=== PATIENT | female | born 1970 | race Caucasian/White ===

== ENCOUNTER 2025-03-21 04:49 | Emergency (ER) | payer BC, SELFPAY ==
[2025-03-21] VITALS (11 sets, daily range): BP systolic 107–140; BP diastolic 62–87; PULSE 91–109; RESP 14–19; TEMP 36.4; O2SAT 92–95
--- NOTE | ~2025-03-21 | XR_ITS ---
Clinical Indication: Cough PA and lateral views of the chest: Comparison: None Findings: The lungs are clear, without evidence of focal consolidation or pleural effusion. Probable COPD. Cardiomediastinal silhouette is within normal limits. Bones and soft tissues are unremarkable. Impression: Clear lungs. Probable COPD. Reviewed, dictated and finalized at location . Impression: Clear lungs. Probable COPD.
--- NOTE | 2025-03-21 05:26 | ED.NAVMDI ---
HPI - Nausea/Vomiting/Diarrhea General Chief complaint: Nausea/Vomiting/Diarrhea Stated complaint: flu - like sx Time Seen by Provider: 03/21/25 05:10 Source: patient Mode of arrival: ambulatory Limitations: no limitations History of Present Illness HPI Narrative: Patient presents with a variety of symptoms. She reports flu like symptoms since Thursday. She has been congested with a sore throat as well as nausea; vomited Thursday (coffee, which was reportedly a very unpleasant experience) but not since. She had diarrhea but now has been constipated, LBM yesterday. Occasional abdominal pain. Unknown if any fevers. Decreased PO intake. Has been coughing after which she developed chest pain. Also shortness of breath. Lives with her boyfriend who has also been sick with similar symptoms (I guess he just has a better immune system than me). Has not seen her PCP for this. History of T2DM and has noticed that her blood sugars have been elevated recently. Feels weak. Smokes <1PPD but denies underlying respiratory diagnoses of asthma or COPD. Reports feeling hungry. NATHALY was 1/2 cup of coffee. She has tried Mucinex and FastMax (?). Related Data Allergies Allergy/AdvReac Type Severity Reaction Status Date / Time azithromycin Allergy Severe Hives Verified 03/21/25 04:51 Penicillins Allergy Intermediate Hives Verified 03/21/25 04:51 PMFSH Past Medical History Medical History Type 2 diabetes mellitus Social History Social History Smoking status: Current every day smoker Additional smoking assessment comments: <1PPD Living arrangements: other Additional living arrangements comments: w/ boyfriend Exam Narrative: GENERAL: Well-appearing, well-nourished, and in no acute distress. HEAD: Normocephalic, atraumatic. EYES: Non injected, non icteric ENT: Nares clear, no rhinorrhea or epistaxis. Gross auditory acuity intact. NECK: Supple. No meningismus. CHEST: Speaking in full sentences. No respiratory distress. Coarse rhonchi/wheezes bilaterally. Occasionally needs to try to stifle cough during deep breaths. HEART: Tachycardic rate and rhythm. . ABDOMEN: Soft, nondistended. No rigidity or guarding. Not peritoneal EXTREMITIES: Normal range of motion. No lower extremity edema. SKIN: Warm, dry, no rash. NEURO: No focal deficits. Alert and oriented. Answering questions. Following commands. Normal speech without aphasia or dysarthria. PSYCH: Congruent mood and affect. Seems disgruntled when responding to questions. Course Vital Signs Vital signs: Vital Signs Temperature 97.5 F L 03/21/25 05:02 Pulse Rate 109 H 03/21/25 05:02 Blood Pressure 140/69 03/21/25 05:02 Pulse Oximetry 93 03/21/25 05:02 Temperature 97.5 F L 03/21/25 05:02 Pulse Rate 99 03/21/25 08:36 Respiratory Rate 16 03/21/25 08:36 Blood Pressure 113/62 03/21/25 08:36 Pulse Oximetry 95 03/21/25 08:36 Oxygen Delivery Room Air 03/21/25 08:24 Oxygen Flow Rate 2 03/21/25 07:36 MDM - Nausea/Vomiting/Diarrhea MDM Narrative Medical decision making narrative: Patient presents with various flu/cold like symptoms including cough, congestion, sore throat, and nausea. In the ED she is afebriel with VS notable for mild tachycardia. Patient's oxygen saturation does dip down to the 80s. Chest x-ray is concerning for COPD although she has not been diagnosed with this. Will start with DuoNeb. This followed by albuterol. Hyperglycemia without anion gap acidosis. Dimer normal. Patient had to be placed back on oxygen because her SpO2 was 88%. Will continue to treat as COPD although again this is new onset. Patient given steroid an additional albuterol treatment and, given the new O2 requirement, doxycycline as well. When asked how she is feeling she seems exasperated stating I'm hungry and I'm thirsty. PO challenge ordered. Mild leukocytosis. I did go to bedside and downtirate patient off oxygen and discussed her work up with her and during this time she maintained her o2 saturation >96%. Discharged in stable condition but urged her to follow up with PCP. She notes she alraedy has an appointment scheduled with them within the next week. Provided Rx to treat outpatient COPD exacerbation : steroid, albuterol inhaler, antibiotic with the addition of Zofran for nausea. ED return precautions also given. Differential Diagnosis Differential diagnosis: Likely dehydration and other (acute viral syndrome (influenza, RSV, COVID); pneumonia; bronchitis; strep) Lab Data Attestation: I reviewed the patient's lab results. Lab results narrative: Strep and viral panel negative. 03/21/25 05:45 03/21/25 05:45 Labs: Lab Results 03/21/25 03/21/25 03/21/25 Range/Units 05:45 07:09 07:22 WBC 11.5 H (4.5-10.0) K/mm3 RBC 4.87 (4.2-5.4) M/mm3 Hgb 14.6 (12.0-15.0) g/dL Hct 43.9 (37.0-47.0) % MCV 90.1 (80-100) fl MCH 30.0 (26-34) pg MCHC 33.3 (32-36) g/dl RDW 12.6 (11.5-14.5) % Plt Count 206 (150-375) k/mm3 MPV 11.8 H (7.4-10.4) fl Immature Gran % (Auto) 0.3 (0-0.5) % Neut % (Auto) 78.1 H (45.5-73.1) % Lymph % (Auto) 13.0 L (18.3-44.2) % [place] % (Auto) 7.3 (2.6-8.5) % Eos % (Auto) 1.0 (0-4.4) % Baso % (Auto) 0.3 (0.2-1.2) % Lymph # (Auto) 1.49 (0.9-3.2) K/mm3 [place] # (Auto) 0.8 H (0.1-0.6) K/mm3 Eos # (Auto) 0.1 (0-0.3) K/mm3 Baso # (Auto) 0.0 (0.0-0.1) K/mm3 Abs Immat Gran (auto) 0.03 (0.00-0.031) K/mm3 Absolute Neuts (auto) 9.0 H (1.3-6.7) K/mm3 Absolute Nucleated RBC 0.000 (0.0-0.012) K/mm3 Nucleated RBC % 0.0 (0.0-0.2) % D-Dimer < 0.27 (<0.48) ug/mL Sodium 137 (137-145) mmol/L Potassium 3.9 (3.4-5.0) mmol/L Chloride 99 (98-107) mmol/L Carbon Dioxide 30 (22-30) mmol/L Anion Gap 8 (4-12) mmol/L BUN 13 (7-17) mg/dL Creatinine 0.56 L (0.7-1.0) mg/dL Estim Creat Clear Calc 79 ml/min Estimated GFR > 60 (59 - ) Glucose 190 H (65-110) mg/dL Calcium 9.8 (8.4-10.2) mg/dL Total Bilirubin 0.7 (0.2-1.3) mg/dL AST 30 (14-36) U/L ALT 27 (6-35) U/L Alkaline Phosphatase 89 (38-126) U/L Total Protein 7.0 (6.3-8.2) g/dL Albumin 4.3 (3.5-5.1) g/dL Lipase 284 (23-300) U/L Urine Color Yellow (Yellow) Urine Appearance Clear (Clear) Urine pH 6.0 (5.0-9.0) Ur Specific [place] 1.009 (1.001-1.035) Urine Protein Negative (Negative) mg/dL Urine Glucose (UA) Negative (Negative) mg/dL Urine Ketones 1+ H (Negative) mg/dL Ur Blood (Man) Negative (Negative) Urine Nitrate Negative (Negative) Urine Bilirubin Negative (Negative) Urine Urobilinogen 0.2 (<2.0) mg/dL Leukocyte Esterase Rfl Negative (Negative) CASTILLO/UL POC Urine HCG, Qual Negative (Negative) Influenza A (RT-PCR) Negative (Negative) Influenza B (RT-PCR) Negative (Negative) RSV (RT-PCR) Negative (Negative) SARS-CoV-2 RNA (RT-PCR) Negative (Negative) Group A Strep (PCR) Not detected (Negative) Imaging Data Radiologist's impression: Impression: Clear lungs. Probable COPD. ECG Data EKG #1: Attestation: I personally reviewed and interpreted this ECG as follows: ECG completion date: 03/21/25 ECG completion time: 05:37 Interpretation: Normal sinus rhythm at a rate of 90 beats per minute. IA interval 150. QRS 86. QT/QTC 338/386. Good R-wave progression across the precordial leads. No T-wave inversions. Normal axis. Discharge Plan Discharge Clinical Impression: Hyperglycemia, Nausea, COPD suggested by initial evaluation, Cigarette smoker Instructions: Antibiotic Form, How to Stop Smoking (ED), COPD (Chronic Obstructive Pulmonary Disease) (DC), Acute Nausea and Vomiting (ED) Additional Instructions: As we discussed, your workup suggested that you might have COPD. Recommend you keep your upcoming follow-up appointment with her primary care physician that is already scheduled. In the interim take the medications as prescribed. For nausea, the oral disintegrating Zofran can help. Return to the emergency department any new worsening or unmanaged symptoms. Patient Language: Belarusian Prescriptions: New ondansetron 4 mg tablet,disintegrating 4 mg PO Q8H PRN (Reason: nausea and vomiting) Qty: 7 0RF prednisone 20 mg tablet 40 mg PO DAILY 4 Days Qty: 8 0RF Rx Instructions: start 03/22/25 (received first dose ED 03/21) albuterol sulfate 90 mcg/actuation HFA aerosol inhaler 1 inh inhalation QID PRN (Reason: shortness of breath or wheezing) Qty: 6.7 0RF doxycycline hyclate 100 mg capsule 100 mg PO DAILY 4 Days Qty: 4 0RF Rx Instructions: start 03/22 (received first dose ED 03/21) Follow-up/Referrals: PHYSICIAN,AIRPLANE COVERER [Primary Care Provider] - Stand Alone Forms: Work/School Release IP Time of Disposition: 08:27
--- NOTE | 2025-03-21 05:31 | ECG_ITS ---
Test Date: 2025-03-21 05:37:28 Measurements Intervals [place] Rate: 90 P: 76 MS: 150 QRS: 72 QRSD: 86 T: 63 QT: 338 QTc: 414 Interpretive Statements SINUS RHYTHM POSSIBLE LEFT ATRIAL ENLARGEMENT CANNOT R/O SEPTAL INFARCT, AGE INDETERMINATE BASELINE ARTIFACT- I, II, III, AVR, AVL ABNORMAL ECG No previous ECG available for comparison Electronically Signed On 03-21-2025 06:17:53 CDT by Lenin Ray D.O.
[2025-03-21] MEDS: BENZONATATE 100 MG CAPSULE PO (05:45)
[2025-03-21] MEDS: ONDANSETRON INJ 4 MG/2 ML VIAL IV PUSH (06:04)
[2025-03-21] MEDS: SODIUM CHLORIDE 0.9% IV 1,000 ML 999 ML IV CONT (06:04)
--- OUTSIDE RECORDS SUMMARY | 2025-03-21 06:04 | XMS_ITS | Clinical Summary ---
Author Organization [facility] Address [address] [place] [address] Care Team Providers Care Extras Casting Director Name Role Phone Robbie Osei MD Primary Care Provider [phone] Allergies Active Allergy Reactions Criticality Noted Date Comments Erythromycin Empagliflozin Nausea & Vomiting Low 08/18/2022 Penicillins Hives,Rash Reaction: Hives, Skin Rash, Propoxyphene Tuberculin Unknown 08/18/2022 Medications fluticasone propionate (FLONASE) 50 mcg/actuation nasal spray Administer 1 spray into each nostril daily Active im-yihguzs-pa n-iron fm-FA-vitK 18 mg iron-600 mcg-80 mcg tablet Take by mouth Active blood-glucose [place] [facility] [place]: Diabetes type 2, without complication DX E11.9 Blood testing frequency: once a day 04/23/20 16 Active alcohol swabs pads, medicated Use as directed for blood glucose testing one time daily. Diabetes Type 2, without complication DX E11.9 09/04/20 17 Active ibuprofen (ADVIL,MOTRIN ) 200 mg tab/cap Take 1 tablet/capsule (200 mg total) by mouth as needed for pain Active atorvastatin (LIPITOR) 20 mg tablet Take 1 tablet (20 mg total) by mouth daily 02/15/20 22 Active Jeimy-D 24 Hour 180-240 mg per 24 hr tablet Take 1 tablet by mouth daily 03/04/20 22 Active pen needle, diabetic (TRUEplus Pen Needle) 32 gauge x 5/32 needleIndicat ions:Type 2 diabetes mellitus with hyperglycemia , without long-term current use of insulin (HCC) USE 1 TABLET BY MOUTH ONCE DAILY 100 each 3 08/31/20 23 Active glipiZIDE (GLUCOTROL) 5 mg tabletIndicat ions:type 2 diabetes mellitus Take 1 tablet (5 mg total) by mouth 2 (two) times a day before breakfast and lunch 180 tablet 3 07/25/20 24 025 Active Additional Information Patient taking differently:5 mg oralDaily, Indications: type 2 diabetes mellitus, Reported on 02/27/2025 estradioL (ESTRACE) 0.01 % (0.1 mg/gram) vaginal cream Insert a 1/2 G twice weekly to vagina. Stop cream 10 days prior to pap 42.5 g 1 02/01/20 25 025 Active clobetasoL (TEMOVATE) 0.05 % ointment APPLY 2GMS TO THE AFFECTED AREAS OF HANDS NIGHTLY NO MORE THAN 2 WEEKS AT A TIME. TAKE A SMALL BREAK THEN RESUME FOR FLARES. AVOID FACE,GROIN, AND AXILLA 12/29/19 25 Active glipiZIDE XL (GLUCOTROL XL) 2.5 mg 24 hr tablet TAKE 1 TABLET BY MOUTH ONCE DAILY WITH FIRST MEAL 12/10/19 25 Active metFORMIN (GLUCOPHAGE) 1,000 mg tabletIndicat ions:Type 2 diabetes mellitus with hyperglycemia , without long-term current use of insulin (HCC) Take 1 tablet (1,000 mg total) by mouth 2 (two) times a day with meals 180 tablet 3 02/28/20 25 026 Active semaglutide (OZEMPIC) 0.25 mg or 0.5 mg (2 mg/3 mL) pen injector injectionIndi cations:Type 2 diabetes mellitus with hyperglycemia , without long-term current use of insulin ([facility]) Inject 0.25 mg under the skin every 7 days 4.5 mL 1 03/14/20 25 025 Active semaglutide 0.25 mg or 0.5 mg (2 mg/3 mL) pen injector injectionIndi cations:Type 2 diabetes mellitus with hyperglycemia , without long-term current use of insulin ([facility]) Inject 0.25 mg under the skin every 7 days 4.5 mL 1 07/25/20 24 025 Discontinued(R eorder) metFORMIN (GLUCOPHAGE) 500 mg tabletIndicat ions:Type 2 diabetes mellitus with hyperglycemia , without long-term current use of insulin (HCC) TAKE 2 TABLETS BY MOUTH WITH BREAKFAST AND 1 WITH SUPPER 270 tablet 12/12/19 25 025 Discontinued Active Problems Problem Noted Date Diagnosed Date Type 2 diabetes mellitus wit h hyperglycemia, without long-term current use of insulin 08/18/2022 Assessment & Plan (02/27/2025 11:14 AM CDT): Chronic problem. A1c eugenia from 7.7% to now 8.1%. ozempic stopped d/t weight loss (still losing) at 07/2024 appt. Has since gone back on Ozempic 0.5mg weekly d/t elevated BG. -increase the metformin to 1000mg twice daily -increase the Glipizide to twice daily (your 2 largest meals) Current medications: Metformin 1000mg twice daily with meals Glipizide 5mg twice daily Ozempic 0.5mg weekly UTD on DM eye exam (10/26/23 no DMR/DME [facility]) Will update labs. Verified that she uses [facility]. Aware to check results/results letter in [facility]. Will contact by phone if needed. Discussed with Duane Eduardo: Strive for regular exercise (30min most days) and diet (get at least 4-5 servings of fruit and veggies daily, avoid processed foods, increase lean protein intake and decrease carb portions as well as fruit juices, regular soda & desserts). Watch carbs and simple sugars. Check the blood sugar: Dexcom G7. Check the feet daily for skin breakdown and infection. Assessment & Plan (07/26/2024 9:43 AM CDT): Chronic, uncontrolled slightly worsening Hemoglobin A1c 7.3% Reviewed Dexcom G7 download Average blood sugar 144 Target blood sugar range 78% High 17% Very high 2% Low 2% Very low 1% Currently on undergoing constant medication dose adjustments by her insurance plan Patient is progressively losing weight and currently her BMI is 18 Not recommend further weight loss advised to decrease Ozempic to 0.25 mg subQ weekly Advised to hold Ozempic but patient is not willing to do that right now So advised to cut back on Ozempic to 0.25 mg subQ weekly Anticipating worsening postprandial hyperglycemia therefore change glipizide XL to glipizide 5 mg 1 tablet oral twice a day ( advised patient to start taking glipizide 5 mg with breakfast and advised to add 5 mg/2.5 mg with lunch or dinner if needed ) Continue current dose of metformin Assessment & Plan (01/27/2024 8:38 PM CDT): Chronic, improving controlled, at goal A1c 6.3% Reviewed dexom G 7 download Blood sugars and 93% in target range Counseled on diet and exercise Recommend to continue current dose of metformin, glipizide and Ozempic Advised to cut back on glipizide if having low blood sugars Recommend annual dilated eye exam Daily foot care Follow-up in 6 months Assessment & Plan (07/26/2023 1:49 PM CDT): Chronic uncontrolled, above goal A1c 7.6 % Reviewed DEXCOM G 7 download Mild post prandial hyperglycemia Continue current medication regimen Counseled on diet and exercise Recommend annual dilated eye exam Daily foot care Check labs today Assessment & Plan (12/22/2022 10:31 AM CLUBHOUSE MANAGER): Chronic, uncontrolled, significant improvement over past few months , but still above goal A1c today 7.5 % Counseled on diet and exercise Cut back on smoking Continue current Insulin dose, glipizide, ozempic and metformin Advised to notify if having low BS Discussed about CGM, pt not willing to have the script at this time Gave a sample of Freestyle amy 2 to try Daily foot care Follow up in 6 months Assessment & Plan (10/23/2022 3:17 PM CLUBHOUSE MANAGER): Chronic problem, significantly improving but not at goal. Change Bydureon to ozempic for site reactions, and hopefully better postprandial control, can also try advancing dose if needed. Continue same other medications, discussed working activity / exercise into her day. Assessment & Plan (08/18/2022 12:35 PM CDT): Chronic, uncontrolled , worsening A1c - 13 % Counseled on diet and exercise Rule out type 1/ autoimmune Dm - counseled on diet and exercise - Start Lantus / Tresiba pen 8 units SQ daily in morning ( increase by 1-2 units every week until your morning blood sugars less than 130 ) - start taking Glipizide 5 mg oral twice daily with breakfast and dinner - keep taking Metformin and bydureon the same - do labs - fasting - check blood sugars before breakfast and before dinner - follow up in 8 weeks with Rayna ABDI ) and 4 months with Hyperlipidemia associated with type 2 diabetes tyler banda 08/18/2022 Assessment & Plan (02/27/2025 10:48 AM CDT): Chronic problem, unknown status. Currently taking Atorvastatin 20mg. Last lipid panel: 10/28/21 AAB=837, CB=085. Will update labs. Verified that she uses [facility]. Aware to check results/results letter in [facility]. Will contact by phone if needed. Assessment & Plan (07/26/2024 9:43 AM CDT): Pt on statin therapy Tolerating well Assessment & Plan (01/27/2024 8:37 PM CDT): Pt on statin therapy Tolerating well Assessment & Plan (07/26/2023 1:43 PM CDT): Pt on statin therapy Tolerating well Assessment & Plan (12/22/2022 10:29 AM CLUBHOUSE MANAGER): Pt on statin therapy Tolerating well Assessment & Plan (10/23/2022 2:26 PM CLUBHOUSE MANAGER): Chronic problem. On statin therapy, no changes. Assessment & Plan (08/18/2022 12:33 PM CDT): Pt on statin therapy Tolerating well Tobacco abuse 08/18/2022 Assessment & Plan (12/22/2022 10:29 AM CLUBHOUSE MANAGER): counseled to cut back and stop smoking No pathologic diagnosis 03/04/2014 Overview (01/22/2017): No diagnosis Resolved Problems Problem Noted Date Diagnosed Date Resolved Date Chronic fatigue 06/18/2020 06/18/2020 Encounters Date Type Department Care Team Description 03/14/2025 Telephone [facility] [address] [phone] Soham Daniel MD 03/07/2025 Results Follow-Up [facility] Diabetes and Endocrinology [address] [place] [address] [phone] Delisa Navarro NP Lipid panel, Comprehensive metabolic panel, Albumin Creatinine Ratio, Urine 03/06/2025 Orders Only [facility] [address] [phone] Delisa Navarro NP 02/27/2025 10:30 AM CDT Office Visit [facility] Diabetes [facility] Endocrinology [address] [place] [address] [phone] Delisa Navarro, SANDRA Type 2 diabetes mellitus with hyperglycemia, without long-term current use of insulin (HCC) (Primary Dx); Hyperlipidemia associated with type 2 diabetes mellitus (HCC) 02/20/2025 9:30 AM CDT Clinical Support Shay Bedoya [address] [place] [address] [address] [place] [phone] Genetic testing of female (Primary Dx) 01/23/2025 Telephone [facility] [address] [place] [phone] Dalia Mendiola RN Pap Result 01/21/2025 Results Follow-Up [facility] [address] [place] [phone] Hugo Barnhart MD Pap, reflex HPV 01/09/2025 10:30 AM CDT Office Visit [facility] [address] [place] [address] [address] [place] [phone] Hugo Barnhart MD ASCUS of cervix with negative high risk HPV (Primary Dx); History of abnormal cervical Pap smear from Last 3 Months Immunizations Immunization Administration Dates Next Due Influenza, Quadrivalent, Spl it, Preservative Free, Intramuscular 08/11/2022 Surgical History Surgery Date Site/Laterality Comments TUBAL LIGATION 10/19/1990 - 10/18/1991 Bilateral tubal ligation APPENDECTOMY 10/19/1989 - 10/18/1990 Appendectomy ABLATION 10/19/2010 - 10/18/2011 Novasure, for menorrhagia COLONOSCOPY ORAL SURGERY Medical History Medical History Date Comments Diabetes type 2, controlled (HCC) Chlamydia 1989 Family History Medical History Relation Name Comments Other Father Metastatic canc er; Heart disease Maternal Grandfather Heart disease; Lung cancer Maternal Grandmother Cancer, lung; Cause of : Cancer, lung Uterine cancer Mother Uterine Cance r; Relation Name Status Comments Father Maternal Grandfather Maternal Grandmother Mother Social History Tobacco Use Types Packs/Day Years Used Date Smoking Tobacco: Every Day Cigarettes Smokeless Tobacco: Never Comments:Smoking History Pac ks/day: 1 Packs Alcohol Use Standard Drinks/Week Comments Yes 0 (1 standard drink = 0.6 oz pur e alcohol) rare, social only PHQ-2 Answer Date Recorded PHQ-2 Total Score (If total score is 3 or more points, staff should administer the PHQ-9) 0 06/27/2024 Comments No Sex and Gender Information Value Date Recorded Sex Assigned at Not on file Legal Sex Female 2:27 AM CLUBHOUSE MANAGER Gender Identity Not on file Sexual Orientation Not on file Obstetrics History Para Term AB IAB SAB Ectopic Multiple Livin g Live Births 3 2 2 1 1 2 2 Date Outcome GA Total Labor Labor/2nd/3rd Weight Sex Type Anes PTL Anisha A1 A5 Name Clin 1988 SAB Demise 08/06 89 Term 3.005 kg (6 lb 10 oz) F Vag-S pont Living Tammie 03/06 [birth year] Term 3.544 kg (7 lb 13 oz) F Vag-S pont Living Praveena Last Filed Vital Signs Vital Sign Reading Time Taken Comments Blood Pressure 102/70 02/27/2025 10:22 AM CDT Pulse 88 02/27/2025 10:22 AM CDT Temperature 36.7 C (98.1 F) 06/02/2023 8:01 AM CDT Respiratory Rate 16 02/27/2025 10:22 AM CDT Oxygen Saturation 97% 06/02/2023 8:01 AM CDT Inhaled Oxygen Concentration - - Weight 51.7 kg (114 lb) 02/27/2025 10:22 AM CDT Height 167.6 cm (5' 5.98) 02/27/2025 10:22 AM C DT Body Mass Index 18.41 02/27/2025 10:22 AM CDT Plan of Treatment Health Maintenance Due Date Last Done Comments Colon Cancer Screening-Colonoscopy 1969 Hepatitis C Screening 1970 Hepatitis B Screening 1987 Pneumococcal vaccine <65 (2 of 2 - PCV) 06/19/2010 06/19/2009 Zoster Vaccine (2 of 2) 10/12/2023 08/17/2023 Breast Cancer Screening-Mammogram 05/25/2024 05/25/2023, 05/25/2023, 12/27/2018 Covid-19 Vaccine (4 - 2023-2 5 season) 2024 09/14/2021, 01/07/2021, 12/06/2020 Depression Screening 06/27/2025 06/27/2024, 01/18/2024, 04/20/2023, Additional history exists Regular Well Visit/Exam 18-64 06/27/2025, 04/20/2023, 07/08/2021, Additional history exists Hemoglobin A1C 08/30/2025 02/27/2025, 08/20, 07/25/2024, Additional history exists Dilated Eye Exam 10/26/2025 10/26/2023, 04/07/2022 Cervical Cancer Screening 01/09/20262024, 06/27/2024, 04/20/2023, Additional history exists Foot Exam 02/27/2026 02/27/2025, 04/2024, 01/18/2024, Additional history exists Albumin Creatinine Ratio, Urine 03/06/2026 03/06/2025, 11/30/2023, 10/22/2022, Additional history exists Lipid Panel 03/06/2026 03/06/2025, 10/23/2022 eGFR 03/06/2026 03/06/2025, 09/12/2024 DTaP/Tdap/Td Vaccine (2 - Td or Tdap) 03/21/2034 03/21/2024 Influenza Vaccine Completed 10/10/2024, , 08/11/2022, Additional history exists Procedures Procedure Name Priority Date/Time Associated Diagnosis Comments ALBUMIN CREATININE RATIO, URINE Routine 03/06/2025 6:26 AM CDT COMPREHENSIVE METABOLIC PANEL Routine 03/06/2025 6:26 AM CDT LIPID PANEL Routine 03/06/2025 6:26 AM CDT POCT GLUCOSE Routine 02/27/2025 10:26 AM CDT Type 2 diabetes mellitus with hyperglycemia, without long-term current use of insulin (HCC) POCT HEMOGLOBIN A1C Routine 02/27/2025 1 0:26 AM CDT Type 2 diabetes mellitus with hyperglycemia, without long-term current use of insulin (HCC) PAP, REFLEX HPV Routine 01/09/2025 11:11 AM CDT ASCUS of cervix with negative high risk HPV History of abnormal cervical Pap smear HPV DNA (HIGH RISK) Routine 01/09/2025 1 1:11 AM CDT HM DIABETES EYE EXAM Routine 10/26/2023 7:40 AM CLUBHOUSE MANAGER from Last 3 Months or Most Recently Relevant to Health Maintenance Results * Albumin Creatinine Ratio, Urine (03/06/2025 6:26 AM CDT) Creatinine, ur 37 20 - 275 mg/dL [facility] Microalbumin, ur 0.9 See Note: mg/dL [facility] Comment: Reference Range: Reference Range Not established Microalbumin/creat ratio 24 <30 mg/g creat [facility] Comment: The ADA defines abnormalities in albumin excretion as follows: Albuminuria Category Result (mg/g creatinine) Normal to Mildly increased <30 Moderately increased 30-299 Severely increased > OR = 300 The ADA recommends that at least two of three specimens collected within a 3-6 month period be abnormal before considering a patient to be within a diagnostic category. 03/06/2025 6:26 AM CDT 03/06/2025 6:27 AM CDT Narrative etrigg - 03/07/2025 1:37 AM CDT AN UPDATE OR CORRECTION HAS BEEN MADE TO NAME us Delisa Navarro NP LAB URINE ORDERABLES Marine valentino Result [facility] [address] [address] [facility] [place] [phone] * Lipid panel (03/06/2025 6:26 AM CDT) Cholesterol 144 <200 mg/dL [facility] HDL 75 > OR = 50 mg/dL [facility] Triglycerides 85 <150 mg/dL [facility] LDL 52 mg/dL (calc) [facility] Comment: Reference range: <100 Desirable range <100 mg/dL for primary prevention; <70 mg/dL for patients with CHD or diabetic patients with > or = 2 CHD risk factors. LDL-C is now calculated using the Shaan-Carlin calculation, which is a validated novel method providing better accuracy than the Friedewald equation in the estimation of LDL-C. Shaan SOLANO et al. ERIK. 2013;310(19): 5233-3879 (http://education.[employer]/faq/ZTC561) Chol/HDL ratio 1.9 <5.0 (calc) [facility] Non-HDL, (LDL+VLDL) 69 <130 mg/dL (calc) [facility] Comment: For patients with diabetes plus 1 major ASCVD risk factor, treating to a non-HDL-C goal of <100 mg/dL (LDL-C of <70 mg/dL) is considered a therapeutic option. 03/06/2025 6:26 AM CDT 03/06/2025 6:27 AM CDT Narrative [facility] - 03/07/2025 1:37 AM CDT AN UPDATE OR CORRECTION HAS BEEN MADE TO NAME us Delisa Navarro LEAF STAMPER LAB BLOOD ORDERABLES Marine l Result [facility] [address] [place] [phone] * (ABNORMAL) Comprehensive metabolic panel (03/06/2025 6:26 AM CDT) Glucose 142(H) 65 - 99 mg/dL [facility] Comment: Fasting reference interval For someone without known diabetes, a glucose value >125 mg/dL indicates that they may have diabetes and this should be confirmed with a follow-up test. BUN 16 7 - 25 mg/dL [facility] Creatinine 0.59 0.50 - 1.03 mg/dL [facility] eGFR 106 > OR = 60 mL/min/1.7 3m2 [facility] BUN/creat ratio SEE NOTE: 6 - 22 (calc) [facility] Comment: Not Reported: BUN and Creatinine are within reference range. Sodium 138 135 - 146 mmol/L [facility] Potassium, pl 4.1 3.5 - 5.3 mmol/L [facility] Chloride 102 98 - 110 mmol/L [facility] CO2 27 20 - 32 mmol/L [facility] Calcium 9.4 8.6 - 10.4 mg/dL [facility] Protein, sr 6.6 6.1 - 8.1 g/dL [facility] Albumin 4.6 3.6 - 5.1 g/dL [facility] GLOBULIN 2.0 1.9 - 3.7 g/dL (calc) [facility] Alb/glob ratio 2.3 1.0 - 2.5 (calc) [facility] Bilirubin, total 0.9 0.2 - 1.2 mg/dL [facility] Alk phos 75 37 - 153 U/L [facility] AST 26 10 - 35 U/L [facility] ALT (SGPT) 27 6 - 29 U/L [facility] 03/06/2025 6:26 AM CDT 03/06/2025 6:27 AM CDT Narrative [facility] - 03/07/2025 1:37 AM CDT AN UPDATE OR CORRECTION HAS BEEN MADE TO NAME us Delisa Navarro LEAF STAMPER LAB BLOOD ORDERABLES Marine l Result [facility] [address] [facility] [place] [phone] * (ABNORMAL) POCT hemoglobin A1c (02/27/2025 10:26 AM CDT) Hemoglobin A1C, POC 8.1(A) 4.0 - 5.6 % Blood 02/27/2025 10:2 6 AM CDT us Delisa Navarro NP POINT OF CARE TEST ORDERA BLES Final Result * (ABNORMAL) POCT glucose (02/27/2025 10:26 AM CDT) Glucose Blood, POC 166 Normal Fasting 70 - 100, Random <200 mg/dL Blood 02/27/2025 10:2 6 AM CDT us Delisa Navarro LEAF STAMPER POINT OF CARE TEST ORDERA BLES Final Result * (ABNORMAL) Pap, reflex HPV (01/09/2025 11:11 AM CDT) CLINICAL INFORMATION: Lelo Guerra Comment:ASCUS NEG HPV X2 LMP Lelo Guerra Comment:ABLATION Previous Pap [facility] DiagnosticsQueenie Guerra Comment:NONE GIVEN Prev. Bx [facility] DiagnosticsQueenie Guerra Comment:NONE GIVEN SOURCE: Lelo Guerra Comment:Cervix, Endocervix Pap, specimen adequacy Lelo Guerra Comment: Satisfactory for evaluation. Endocervical/transformation zone component present. Pap, general categorization (A) Lelo Guerra Comment:Cytology Results: Ep ithelial Cell Abnormality HPV interp (A) Lelo Guerra Comment: Atypical Squamous Cells of Undetermined Significance (ASC-US) COMMENTS [facility] SandraQueenie Guerra Comment: This Pap test has been evaluated with computer assisted technology. Guest Services Lead Roshan Wu Comment: MEF, CT(ASCP) CT screening location: [place] [address] [address] [place]ANE[place] [address] Pathologist Lelo Guerra Comment: Christopher Richardson M.D., Board Certified in Anatomic Pathology and Cytopathology. (electronic signature) Comment Lelo Guerra Comment: EXPLANATORY NOTE: The Pap is a screening test for cervical cancer. It is not a diagnostic test and is subject to false negative and false positive results. It is most reliable when a satisfactory sample, regularly obtained, is submitted with relevant clinical findings and history, and when the Pap result is evaluated along with historic and current clinical information. Thin prep 01/09/2025 11:1 1 AM CDT 01/10/2025 12:50 AM CDT Result [facility] Hugo Barnhart MD LAB CYTOLOGY ORDERABLES Fi nal Result Performing Organization Address City/[facility]/ZIP Co de Phone Number [place] [address] [address] [place] Roman [phone] * HPV DNA (HIGH RISK) (01/09/2025 11:11 AM CDT) Human papillomavirus DNA, High Risk E6/E7 Not Detected NOT DETECTED [facility] Comment: Not Detected High Risk HPV types (16,18,31,33,35,39,45,51,52, 56,58,59,66,68) were not detected. Other HPV types which cause anogenital lesions may be present. The significance of the other types of HPV in malignant processes has not been established. Methodology: Real Time PCR 01/09/2025 11:1 1 AM CDT 01/10/2025 12:50 AM CDT Result [facility] Hugo Barnhart MD LAB BLOOD ORDERABLES Final Result Performing Organization Address City/[facility]/ZIP Co de Phone Number [facility] [address] [place] [address] * DIABETES EYE EXAM (10/26/2023 7:40 AM CLUBHOUSE MANAGER) us Historical Provider HEALTH MAINTENANCE Final Result from Last 3 Months or Most Recently Relevant to Health Maintenance Insurance [employer] [place] [employer] [place] Care Teams Extras Casting Director Relationship Specialty Start Date End Date Robbie Osei MD [address] [facility] [address] [address] PCP - General Family Medicine 05/31/19
--- OUTSIDE RECORDS SUMMARY | 2025-03-21 06:04 | XMS_ITS | Encounter Summary ---
Author Organization [facility] Address [address] [facility] [place] [address] Phone Care Team Providers Care Quality Review Specialist Name Role Phone Robbie sOei MD Primary Care Provider [phone] Hugo Barnhart MD Unavailable [phone] Frank Hooper MD Unavailable Reason for Visit * Reason Comments Medication Refill Encounter Details Date Type Department Care Team (Late st Contact Info) Description 09/27/2022 Refill [facility] [address]2 [place] [phone] Robbie Osei MD [address] [address] Medication Refill Social History Tobacco Use Types Packs/Day Years Used Date Smoking Tobacco: Former Cigarettes 0.3 33 0 10/24/1986 - 10/24/2019 Smokeless Tobacco: Never Alcohol Use Standard Drinks/Week Comments Yes 0 (1 standard drink = 0.6 oz pur e alcohol) rarely PHQ-2 Answer Date Recorded Total Score - Questions 1-9 0 10/21 Sexually Active Control Partners Comments Not Currently Comments No Sex and Gender Information Value Date Recorded Sex Assigned at Not on file Legal Sex Female 7:35 PM CDT Gender Identity Not on file Sexual Orientation Not on file documented as of this encounter Miscellaneous Notes * Telephone Encounter - Shantell Nelson RN - 09/29/2022 8:21 AM CST Medication failed the protocol, provider to review and approve the medication order if appropriate. Requested Prescriptions Pending Prescriptions Disp Refills Bydureon BCise 2 MG/0.85ML Auto-injector [Pharmacy Med Name: Bydureon BCise 2 MG/0.85ML Subcutaneous Auto-injector] 12 mL 0 Sig: INJECT 2 MG SUBCUTANEOUSLY EVERY 7 DAYS GLP-1 Agonists Protocol Failed - 09/27/2022 4:34 AM Failed - HgA1C result on record in past 6 months HGB-A1C Date Value Ref Range Status 03/28/2022 12.6 % Final 03/28/2022 12.6 % Final 03/28/2022 12.6 % Final Failed - GFR on record in past 6 months GFR, EST. NONAFRICAN Date Value Ref Range Status 10/28/2021 >60 >=60 Final Passed - Lipid panel result on file in past 12 months LDL Date Value Ref Range Status 03/28/2022 68 0 - 130 mg/dL Final 03/28/2022 68 0 - 130 mg/dL Final 03/28/2022 68 0 - 130 mg/dL Final HDL CHOLESTEROL Date Value Ref Range Status 10/28/2021 73.1 >40 mg/dL Final CHOLESTEROL Date Value Ref Range Status 10/28/2021 216 (H) <=200 mg/dL Final TRIGLYCERIDES Date Value Ref Range Status 10/28/2021 114 <150 mg/dL Final VLDL Date Value Ref Range Status 10/28/2021 23 5 - 55 mg/dL Final CHOL/HDL RATIO Date Value Ref Range Status 10/28/2021 3.0 0.0 - 4.4 Final NON-HDL CHOLESTEROL Date Value Ref Range Status 10/28/2021 142.9 (H) <130 mg/dL Final Passed - Visit with relevant provider in past 6 months or upcoming 90 days Recent Visits Date Type Provider Dept 05/13/22 Office Visit Robbie Osei MD [facility] 03/31/22 Office Visit Robbie Osei MD [facility] Showing recent visits within past 182 days and meeting all other requirements Future Appointments No visits were found meeting these conditions. 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 Plan of Treatment Upcoming Encounters Date Type Department Care Team (Late st Contact Info) Description 03/27/2025 9:00 AM CDT Office Visit [facility] [address]2 [place] [address] Robbie Osei MD [address] [address] documented as of this encounter Visit Diagnoses Not on filedocumented in this encounter Additional Health Concerns Assessment Noted Time PHQ-9 Depression Total Score: 0 07/16/20 21 10:00 AM CDT documented as of this encounter Care Teams Quality Review Specialist Relationship Specialty Start Date End Date Robbie Osei MD #[address] [address] PCP - General Family Medicine 09/05/15 Hugo Barnhart MD #[address] [address] Consulting Physician Obstetrics & Gynecology 09/07/17 Frank Hooper MD #[address] [address] Consulting Physician Colon and Rectal Surgery 11/03/23 documented as of this encounter
--- OUTSIDE RECORDS SUMMARY | 2025-03-21 06:04 | XMS_ITS | Encounter Summary ---
Author Organization [facility] Address [address] [facility] [place] [address] Phone Care Team Providers Care Veterans Employment Representative Name Role Phone Robbie Osei MD Primary Care Provider [phone] Hugo Barnhart MD Unavailable [phone] Frank Hooper MD Unavailable Reason for Visit * Reason Comments Medication Refill Encounter Details Date Type Department Care Team (Late st Contact Info) Description 12/18/2022 Refill [facility] Family Medicine [facility] #2 [place] [phone] Robbie Osei MD #[address] [address] Medication Refill Social History Tobacco Use Types [...] Telephone Encounter - Shantell Nelson RN - 12/18/2022 1:21 PM CST Medication failed the protocol, provider to review and approve the medication order if appropriate. Requested Prescriptions Pending Prescriptions Disp Refills atorvastatin (LIPITOR) 20 MG Tablet [Pharmacy Med Name: Atorvastatin Calcium 20 MG Oral Tablet] 90 Tablet 0 Sig: Take 1 tablet by mouth once daily Hmg CoA Reductase Inhibitors Protocol Failed - 12/18/2022 8:00 AM Failed - Lipid panel in past 12 months LDL Date Value [...] 142.9 (H) <130 mg/dL Final Passed - No positive test in the past 12 months or most recent test was negative Passed - Visit with relevant provider in past 12 months or upcoming 90 days Recent Visits Date Type Provider Dept 05/13/22 Office Visit Robbie Osei MD [facility] 03/31/22 Office Visit Rbobie Osei MD [facility] Showing recent visits within past 365 days and meeting all other requirements Future Appointments Date Type Provider Dept 01/05/23 Appointment Robbie Osei MD [facility] Showing future appointments within next 90 days and meeting all other requirements Passed - No active on record fluticasone (FLONASE) 50 MCG/ACT Suspension [Pharmacy Med Name: Fluticasone Propionate 50 MCG/ACT Nasal Suspension] 16 g 0 Sig: USE 2 SPRAY(S) IN EACH NOSTRIL ONCE DAILY DIRECTED Nasal Steroids Protocol Passed - 12/18/2022 8:00 AM Passed - Visit with relevant provider in past 12 months or upcoming 90 days Recent Visits Date Type Provider Dept 05/13/22 Office Visit Robbie Osei MD [facility] 03/31/22 Office Visit Robbie Osei MD [facility] Showing recent visits within past 365 days and meeting all other requirements Future Appointments Date Type Provider Dept 01/05/23 Appointment Robbie Osei MD [facility] Showing future appointments within next 90 days and 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 Plan of Treatment Upcoming Encounters Date Type Department Care Team (Late st Contact Info) Description 03/27/2025 9:00 AM CDT Office Visit [facility] - Family [facility] #2 [place] [address] Robbie Osei MD #[address] [address] documented as of this encounter Visit Diagnoses Diagnosis Cough in adult Bronchitis Bronchitis, not specified as acute or chronic documented in this encounter Additional Health Concerns Assessment Noted Time PHQ-9 Depression Total Score: 0 07/16/20 10:00 AM CDT documented as of this encounter Care Teams Veterans Employment Representative Relationship Specialty Start Date End Date Robbie Osei MD #[address] [address] PCP - General Family Medicine 09/05/15 Hugo Barnhart MD #[address] [address] Consulting Physician Obstetrics & Gynecology 09/07/17 Frank Hooper MD #[address] [address] Consulting Physician Colon and Rectal Surgery 11/03/23 documented as of this encounter
--- OUTSIDE RECORDS SUMMARY | 2025-03-21 06:04 | XMS_ITS | Encounter Summary ---
Author Organization [facility] Address [address] [facility] [place] [address] Phone Care Team Providers Care Marketing Account Executive Name Role Phone Robbie Osei MD Primary Care Provider Hugo Barnhart MD Unavailable [phone] Frank Hooper MD Unavailable Reason for Visit * Reason Comments Medication Refill Encounter Details Date Type Department Care Team (Late st Contact Info) Description 09/28/2023 Refill [facility] Family Medicine [facility] #2 [place] [phone] Robbie Osei MD #[address] [address] Medication Refill Social History Tobacco Use Types [...] Telephone Encounter - Shantell Nelson RN - 09/28/2023 1:52 PM CST Medication failed the protocol, provider to review and approve the medication order if appropriate. Requested Prescriptions Pending Prescriptions Disp Refills atorvastatin (LIPITOR) 20 MG Tablet [Pharmacy Med Name: Atorvastatin Calcium 20 MG Oral Tablet] 90 Tablet 3 Sig: Take 1 tablet by mouth once daily Hmg CoA Reductase Inhibitors Protocol Failed - 09/28/2023 6:53 AM Failed - Lipid panel in past [...] Status 10/28/2021 142.9 (H) <130 mg/dL Final Failed - CMP in past 12 months SODIUM Date Value Ref Range Status 10/28/2021 138 136 - 144 mmol/L Final POTASSIUM Date Value Ref Range Status 10/28/2021 4.8 3.5 - 5.1 mmol/L Final CHLORIDE Date Value Ref Range Status 10/28/2021 102 100 - 110 mmol/L Final CO2, VENOUS Date Value Ref Range Status 10/28/2021 26 22 - 32 mmol/L Final ANION GAP Date Value Ref Range Status 10/28/2021 14.8 8.0 - 20.0 mmol/L Final GLUCOSE Date Value Ref Range Status 10/28/2021 241 (H) 70 - 99 mg/dL Final BUN Date Value Ref Range Status 10/28/2021 14 6 - 20 mg/dL Final CREATININE, BLOOD Date Value Ref Range Status 10/28/2021 0.67 0.60 - 1.10 mg/dL Final BUN/CREATININE RATIO Date Value Ref Range Status 10/28/2021 21 (H) 12 - 20 ratio Final TOTAL PROTEIN Date Value Ref Range Status 10/28/2021 7.2 6.0 - 8.3 g/dL Final ALBUMIN Date Value Ref Range Status 10/28/2021 4.6 3.5 - 5.2 g/dL Final Comment: The colormetric methods used for the determination of Albumin may lead to falsely elevated test results in patients suffering from renal failure or insufficiency due to interference with other proteins. A/G RATIO Date Value Ref Range Status 10/28/2021 1.8 1.0 - 2.0 Final CALCIUM Date Value Ref Range Status 10/28/2021 9.8 8.9 - 10.3 mg/dL Final T BILI Date Value Ref Range Status 10/28/2021 0.6 <=1.2 mg/dL Final SGOT (AST) Date Value Ref Range Status 10/28/2021 21 <=32 U/L Final SGPT (ALT) Date Value Ref Range Status 10/28/2021 23 <=41 U/L Final ALKALINE PHOSPHATASE Date Value Ref Range Status 10/28/2021 105 35 - 105 U/L Final GFR, EST. NONAFRICAN Date Value Ref Range Status 10/28/2021 >60 >=60 Final GFR, EST. Date Value Ref Range Status 10/28/2021 >60 >=60 Final Comment: Creatinine Clearance is the preferred criteria for selecting drug dose adjustments in renally impaired patients. The GFR is provided as additional pertinent clinical information. GFR is reported in mL/min/1.73 sq m. IS THE PATIENT REQUIRED TO BE FASTING? Date Value Ref Range Status 10/28/2021 No Final Passed - No positive test in the past 12 months or most recent test was negative Passed - Visit with relevant provider in past 12 months or upcoming 90 days Recent Visits Date Type Provider Dept 08/17/23 Office Visit Robbie Osei MD [facility] 01/22/23 Office Visit Robbie Osei MD [facility] Showing recent visits within past 365 days and meeting all other requirements Future Appointments No visits were found meeting these conditions. 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 Plan of Treatment Upcoming Encounters Date Type Department Care Team (Late st Contact Info) Description 03/27/2025 9:00 AM CDT Office Visit [facility] #2 [place] [address] Robbie Osei MD [address] [address] documented as of this encounter Visit Diagnoses Not on filedocumented in this encounter Additional Health Concerns Assessment Noted Time PHQ-9 Depression Total Score: 0 07/16/20 21 10:00 AM CDT documented as of this encounter Care Teams Marketing Account Executive Relationship Specialty Start Date End Date Robbie Osei MD #[address] [address] PCP - General Family Medicine 09/05/15 Hugo Barnhart MD #[address] [address] Consulting Physician Obstetrics & Gynecology 09/07/17 Frank Hooper MD #[address] [address] Consulting Physician Colon and Rectal Surgery 11/03/23 documented as of this encounter
--- OUTSIDE RECORDS SUMMARY | 2025-03-21 06:04 | XMS_ITS | Encounter Summary ---
Author Organization 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 ASCUS x 3 but negative HR HPV. Let's treat with Estrace cream 1/2gm twice weekly and repeat Pap in 6 months at annual exam time. Stop the Estrace cr 10 days prior to next Pap. documented in this encounter Plan of Treatment Not on file documented as of this encounter Visit Diagnoses Not on filedocumented in this encounter Care Teams Customer Business Manager Relationship Specialty Start Date End Date Robbie Osei MD [address] [address] PCP - General Family Medicine 05/31/19 documented as of this encounter
--- OUTSIDE RECORDS SUMMARY | 2025-03-21 06:04 | XMS_ITS | Encounter Summary ---
Author Organization [facility] Address [address] [facility] [place] [address] Phone Care Team Providers Care Contract Project Manager Name Role Phone Robbie Osei MD Primary Care Provider [phone] Hugo Barnhart MD Unavailable [phone] Frank Hooper MD Unavailable Reason for Visit * Reason Comments Medication Refill Encounter Details Date Type Department Care Team (Late st Contact Info) Description 02/18/2023 Refill [facility] - Family Medicine [facility] #2 [place] [phone] Robbie Osei MD #[address] [address] Medication Refill Social History Tobacco Use Types [...] on file Sexual Orientation Not on file COVID-19 Exposure Response Date Recorded In the last 10 days, have yo u been in contact with someone who was confirmed or suspected to have Coronavirus/COVID-19? No / Unsure 01/22/2023 7:29 AM CDT documented as of this encounter Miscellaneous Notes * Telephone Encounter - Emilee Mayers RN - 02/18/2023 10:55 AM CDT Medication failed the protocol, provider to review and approve the medication order if appropriate. Requested Prescriptions Pending Prescriptions Disp Refills metFORMIN (GLUCOPHAGE) 500 MG Tablet [Pharmacy Med Name: metFORMIN HCl 500 MG Oral Tablet] 180 Tablet 0 Sig: TAKE 1 TABLET BY MOUTH TWICE DAILY WITH MEALS Biguanides Protocol Failed - 02/18/2023 3:08 AM Failed - HgA1C on record in past 6 months HGB-A1C Date Value Ref Range Status 03/28/2022 12.6 % Final 03/28/2022 12.6 % Final 03/28/2022 12.6 % Final Failed - GFR on record in past 6 months GFR, EST. NONAFRICAN Date Value Ref Range Status 10/28/2021 >60 >=60 Final Passed - Visit with relevant provider in past 6 months or upcoming 90 days Recent Visits Date Type Provider Dept 01/22/23 Office Visit Robbie Osei MD [facility] Showing recent visits within past 182 days and meeting all other requirements Future Appointments No visits were found meeting these conditions. Showing future appointments within next 90 days and meeting all other requirements documented in this encounter Plan of Treatment Upcoming Encounters Date Type Department Care Team (Late st Contact Info) Description 03/27/2025 9:00 AM CDT Office Visit [facility] - [facility] [address] [place] [address] Robbie Osei MD #[address] [address] documented as of this encounter Visit Diagnoses Not on filedocumented in this encounter Additional Health Concerns Assessment Noted Time PHQ-9 Depression Total Score: 0 07/16/20 21 10:00 AM CDT documented as of this encounter Care Teams Contract Project Manager Relationship Specialty Start Date End Date Robbie Osei MD #2 [facility] [address] [place] [address] PCP - General Family Medicine 09/05/15 Hugo Barnhart MD #2 [facility] [address] [place] [address] Consulting Physician Obstetrics & Gynecology 09/07/17 Frank Hooper MD #2 [facility] [address] [place] [address] Consulting Physician Colon and Rectal Surgery 11/03/23 documented as of this encounter
--- OUTSIDE RECORDS SUMMARY | 2025-03-21 06:04 | XMS_ITS | Encounter Summary ---
Author Organization [facility] Address [address] [facility] [place] [address] Phone Care Team Providers Care Housecalls Nurse Name Role Phone Robbie Osei MD Primary Care Provider Hugo Barnhart MD Unavailable [phone] Frank Hooper MD Unavailable Reason for Visit * Reason Comments Medication Refill Encounter Details Date Type Department Care Team (Late st Contact Info) Description 04/04/2023 Refill [facility] #2 [place] [phone] Robbie Osei MD #[address] [address] Medication Refill Social History Tobacco Use Types [...] Telephone Encounter - Shantell Nelson RN - 04/06/2023 11:55 AM CDT Medication failed the protocol, provider to review and approve the medication order if appropriate. Requested Prescriptions Pending Prescriptions Disp Refills atorvastatin (LIPITOR) 20 MG Tablet [Pharmacy Med Name: Atorvastatin Calcium 20 MG Oral Tablet] 90 Tablet 1 Sig: Take 1 tablet by mouth once daily Hmg CoA Reductase Inhibitors Protocol Failed - 04/04/2023 8:32 PM Failed - Lipid panel in past 12 [...] Dept 01/22/23 Office Visit Robbie Osei MD [facility] 05/13/22 Office Visit Robbie Osei MD [facility] Showing recent visits within past 365 days and meeting all other requirements Future Appointments No visits were found meeting these conditions. Showing future appointments within next 90 days and meeting all other requirements Passed - No active on record documented in this encounter Plan of Treatment Upcoming Encounters Date Type Department Care Team (Late st Contact Info) Description 03/27/2025 9:00 AM CDT Office Visit [facility] - Family [facility] #2 [place] [address] Robbie Osei MD [address] [address] documented as of this encounter Visit Diagnoses Not on filedocumented in this encounter Additional Health Concerns Assessment Noted Time PHQ-9 Depression Total Score: 0 07/16/20 21 10:00 AM CDT documented as of this encounter Care Teams Housecalls Nurse Relationship Specialty Start Date End Date Robbie Osei MD #[address] [address] PCP - General Family Medicine 09/05/15 Hugo Barnhart MD [address] [address] Consulting Physician Obstetrics & Gynecology 09/07/17 Frank Hooper MD #[address] [address] Consulting Physician Colon and Rectal Surgery 11/03/23 documented as of this encounter
--- OUTSIDE RECORDS SUMMARY | 2025-03-21 06:04 | XMS_ITS | Referral Summary ---
Author Organization [facility] Medical [facility] Building B Address [address] [place] [address] Care Team Providers Care Conference Organizer Name Role Phone Robbie Osei MD Primary Care Provider [phone] Encounters Date Type Department Care Team Description 03/14/2025 Telephone [facility] [address] [address] Soham Daniel MD 03/07/2025 Results Follow-Up [facility] Diabetes and Endocrinology [address] [place] [phone] Delisa Navarro NP Lipid panel, Comprehensive metabolic panel, Albumin Creatinine Ratio, Urine 03/06/2025 Orders Only [facility] [address] [address] Delisa Navarro NP 02/27/2025 10:30 AM CDT Office Visit [facility] Diabetes and Endocrinology [address] [place] [phone] Delisa Navarro NP Type 2 diabetes mellitus with hyperglycemia, without long-term current use of insulin (HCC) (Primary Dx); Hyperlipidemia associated with type 2 diabetes mellitus (HCC) 02/20/2025 9:30 AM CDT Clinical Support [facility] [address] [place] [phone] Genetic testing of female (Primary Dx) 01/23/2025 Telephone Shay HERNANDEZTodd Elke [address] [place] [address] [address] [place] [address] Dalia Mendiola RN Pap Result 01/21/2025 Results Follow-Up [facility] MARYTodd [address] [place] [address] Hugo Barnhart MD Pap, reflex HPV 01/09/2025 10:30 AM CDT Office Visit Shaytodd HERNANDEZTodd [address] [place] [address] Hugo Barnhart MD ASCUS of cervix with negative high risk HPV (Primary Dx); History of abnormal cervical Pap smear from Last 3 Months Allergies Active Allergy Reactions Criticality Noted Date Comments Erythromycin Empagliflozin Nausea & Vomiting Low 08/18/2022 Penicillins Hives,Rash Reaction: Hives, Skin Rash, Propoxyphene Tuberculin Unknown 08/18/2022 Medications fluticasone propionate (FLONASE) 50 mcg/actuation nasal spray Administer 1 spray into each nostril daily Active ci-wuskatr-ew n-iron fm-FA-vitK 18 mg iron-600 mcg-80 mcg tablet Take by mouth Active blood-glucose meter [facility] Diagnosis: Diabetes type 2, without complication DX [...] without long-term current use of insulin (HCC) Inject 0.25 mg under the skin every 7 days 4.5 mL 1 03/14/20 25 025 Active semaglutide 0.25 mg or 0.5 mg (2 mg/3 mL) pen injector injectionIndi cations:Type 2 diabetes mellitus with hyperglycemia , without long-term current use of insulin (HCC) Inject 0.25 mg under the skin every [...] Will update labs. Verified that she uses [employer]. Aware to check results/results letter in [employer]. Will contact by phone if needed. Discussed [...] today Assessment & Plan (12/22/2022 10:31 AM LANCE CREWMEMBER): Chronic, uncontrolled, significant improvement over past few [...] months Assessment & Plan (10/23/2022 3:17 PM LANCE CREWMEMBER): Chronic problem, significantly improving but not at [...] taking Atorvastatin 20mg. Last lipid panel: 10/28/21 RMM=496, XI=322. Will update labs. Verified that she uses [employer]. Aware to check results/results letter in [employer]. Will contact by phone if needed. Assessment & Plan (07/26/2024 9:43 AM CDT): Pt on statin therapy Tolerating well Assessment & Plan (01/27/2024 8:37 PM CDT): Pt on statin therapy Tolerating well Assessment & Plan (07/26/2023 1:43 PM CDT): Pt on statin therapy Tolerating well Assessment & Plan (12/22/2022 10:29 AM LANCE CREWMEMBER): Pt on statin therapy Tolerating well Assessment & Plan (10/23/2022 2:26 PM LANCE CREWMEMBER): Chronic problem. On statin therapy, no changes. Assessment & Plan (08/18/2022 12:33 PM CDT): Pt on statin therapy Tolerating well Tobacco abuse 08/18/2022 Assessment & Plan (12/22/2022 10:29 AM LANCE CREWMEMBER): counseled to cut back and stop smoking No pathologic diagnosis 03/04/2014 Overview (01/22/2017): No diagnosis Resolved Problems Problem Noted Date Diagnosed Date Resolved Date Chronic fatigue 06/18/2020 06/18/2020 Immunizations Immunization Administration Dates Next Due Influenza, Quadrivalent, Spl it, Preservative Free, Intramuscular 08/11/2022 Social History Tobacco Use Types Packs/Day Years [...] on file Legal Sex Female 2:27 AM LANCE CREWMEMBER Gender Identity Not on file Sexual Orientation Not on file Last Filed Vital Signs Vital Sign Reading [...] 02/27/2025 10:22 AM CDT Plan of Treatment Not on file Procedures Procedure Name Priority Date/Time Associated Diagnosis [...] DIABETES EYE EXAM Routine 10/26/2023 7:40 AM LANCE CREWMEMBER from Last 3 Months or Most Recently [...] Delisa Navarro NP LAB URINE ORDERABLES Marine l Result [facility] [address] [place] [id number] * Lipid panel (03/06/2025 6:26 AM CDT) [...] factors. LDL-C is now calculated using the Wu calculation, which is a validated novel method providing better accuracy than the Friedewald equation in the estimation of LDL-C. Shaan SS et al. ERIK. 2013;310(37): 9226-5059 (http://education.[employer]/faq/TIG704) Chol/HDL ratio 1.9 <5.0 (calc) [facility] Non-HDL, (LDL+VLDL) 69 <130 mg/dL (calc) [facility] Comment: For patients with diabetes plus 1 major ASCVD risk factor, treating to a non-HDL-C goal of <100 mg/dL (LDL-C of <70 mg/dL) is considered a therapeutic option. 03/06/2025 6:2 6 AM CDT 03/06/2025 6:27 AM CDT Narrative [facility] - 03/07/2025 1:37 AM CDT AN UPDATE OR CORRECTION HAS BEEN MADE TO NAME us Delisa Navarro NP LAB BLOOD ORDERABLES Marine l Result [facility] [address] [place] [address] * (ABNORMAL) Comprehensive metabolic panel (03/06/2025 6:26 AM CDT) Pathologist [facility] Glucose 142(H) 65 - 99 mg/dL [facility] [...] BEEN MADE TO NAME us Delisa Navarro HOMICIDE INVESTIGATOR LAB BLOOD ORDERABLES Marine l Result [facility] [address] [place] [address] * (ABNORMAL) POCT hemoglobin A1c (02/27/2025 10:26 AM CDT) Hemoglobin A1C, POC 8.1(A) 4.0 - 5.6 % Blood 02/27/2025 10:2 6 AM CDT Delisa Navarro HOMICIDE INVESTIGATOR POINT OF CARE TEST ORDERA BLES Final Result * (ABNORMAL) POCT glucose (02/27/2025 10:26 AM CDT) Pathologist [facility] Glucose Blood, POC 166 Normal Fasting 70 - 100, Random <200 mg/dL Blood 02/27/2025 10:2 6 AM CDT us Delisa Navarro HOMICIDE INVESTIGATOR POINT OF CARE TEST ORDERA BLES Final Result * (ABNORMAL) Pap, reflex HPV (01/09/2025 11:11 AM CDT) Pathologist [facility] CLINICAL INFORMATION: Lelo Guerra Comment:ASCUS NEG HPV X2 LMP Lelo Guerra Comment:ABLATION Previous Pap Lelo Guerra Comment:NONE GIVEN Prev. Bx Lelo Guerra Comment:NONE GIVEN SOURCE: Lelo Guerra Comment:Cervix, Endocervix Pap, specimen adequacy Lelo Guerra Comment: Satisfactory for evaluation. Endocervical/transformation zone component present. Pap, general categorization (A) Lelo Guerra Comment:Cytology Results: Ep ithelial Cell Abnormality HPV interp (A) Lelo Guerra Comment: Atypical Squamous Cells of Undetermined Significance (ASC-US) COMMENTS Lelo Guerra Comment: This Pap test has been evaluated with computer assisted technology. Cyber Security Architect Roshan Wu Comment: MEF, CT(ASCP) [facility] [place] [address] [place] [address] Pathologist Lelo Guerra Comment: Christopher Richardson M.D., [...] 1 AM CDT 01/10/2025 12:50 AM CDT Hugo Barnhart MD LAB CYTOLOGY ORDERABLES Fi nal Result [facility] [address] [place] [address] * HPV DNA (HIGH RISK) (01/09/2025 11:11 AM CDT) Human papillomavirus DNA, High Risk E6/E7 Not Detected NOT DETECTED [facility] Comment: Not Detected High Risk HPV types (16,18,31,33,35,39,45,51,52, 56,58,59,66,68) were not detected. Other HPV types which cause anogenital lesions may be present. The significance of the other types of HPV in malignant processes has not been established. Methodology: Real Time PCR 01/09/2025 11:1 1 AM CDT 01/10/2025 12:50 AM CDT Hugo Barnhart MD LAB BLOOD ORDERABLES Final Result Performing Organization Address [facility] Co de Phone Number [facility] [address] [place] [address] * DIABETES EYE EXAM (10/26/2023 7:40 AM LANCE CREWMEMBER) Historical Provider HEALTH MAINTENANCE Final Result from Last 3 Months or Most Recently Relevant to Health Maintenance [place] [address] [facility] Care Teams Conference Organizer Relationship Specialty Start Date End Date Robbie Osei MD [address] [address] PCP - General Family Medicine 05/31/19
--- OUTSIDE RECORDS SUMMARY | 2025-03-21 06:04 | XMS_ITS | Encounter Summary ---
Author Organization [facility] Address [address] [facility] [place] [address] Phone Care Team Providers Care Restaurant Host/Hostess Name Role Phone Robbie Osei MD Primary Care Provider [phone] Hugo Barnhart MD Unavailable [phone] Frank Hooper MD Unavailable Reason for Visit * Reason Comments Medication Refill Encounter Details Date Type Department Care Team (Late st Contact Info) Description 05/16/2023 Refill [facility] - Family Medicine [facility] [address] [place] [phone] Robbie Osei MD [address] [address] Medication Refill Social History Tobacco Use Types [...] encounter Miscellaneous Notes * Telephone Encounter - Celsa Leung RN - 05/16/2023 11:50 AM CDT Duplicate request. Already sent to this same pharmacy 5 days ago on 05/11/23. documented in this encounter Plan of Treatment Upcoming Encounters Date Type Department Care Team (Late st Contact Info) Description 03/27/2025 9:00 AM CDT Office Visit [facility] - Family Medicine - [place] [address] [place] [address] Robbie Osei MD [address] [address] documented as of this encounter Visit Diagnoses Not on filedocumented in this encounter Additional Health Concerns Assessment Noted Time PHQ-9 Depression Total Score: 0 07/16/20 21 10:00 AM CDT documented as of this encounter Care Teams Restaurant Host/Hostess Relationship Specialty Start Date End Date Robbie Osei MD #[address] [address] PCP - General Family Medicine 09/05/15 Hugo Barnhart MD [address] [address] Consulting Physician Obstetrics & Gynecology 09/07/17 Frank Hooper MD #[address] [address] Consulting Physician Colon and Rectal Surgery 11/03/23 documented as of this encounter
--- OUTSIDE RECORDS SUMMARY | 2025-03-21 06:04 | XMS_ITS | Encounter Summary ---
Author Organization [facility] Address [address] [place] [address] Phone Care Team Providers Care Wood Carver Hand Name Role Phone Robbie Osei MD Primary Care Provider [phone] Hugo Barnhart MD Unavailable [phone] Frank Hooper MD Unavailable Reason for Visit * Reason Onset Date Comments Medication Refill Medication Refill 09/03/2020 Encounter Details Date Type Department Care Team (Late st Contact Info) Description 09/01/2020 Telephone [facility] - Family [facility] [address] [place] [address] Robbie Osei MD #[address] [address] Medication Refill; Medication Refill Social History Tobacco Use Types Packs/Day Years Used Date Smoking Tobacco: Former Cigarettes 0.3 33 0 10/24/1986 - 10/24/2019 Smokeless Tobacco: Never Alcohol Use Standard Drinks/Week Comments Yes 0 (1 standard drink = 0.6 oz pur e alcohol) rarely PHQ-2 Answer Date Recorded PHQ-2 Score 0 06/23/2019 Sexually Active Control Partners Comments Not Currently Comments No Sex and Gender Information Value Date Recorded Sex Assigned at Not on file Legal Sex Female 7:35 PM CDT Gender Identity Not on file Sexual Orientation Not on file COVID-19 Exposure Response Date Recorded In the last month, have you been in contact with someone who was confirmed or suspected to have Coronavirus / COVID-19? Unable to assess 09/04/2020 9:43 AM TRIM CREW SUPERVISOR documented as of this encounter Miscellaneous Notes * Telephone Encounter - Robbie Osei MD - 09/03/2020 3:14 PM CST yes CREW SUPERVISOR * Telephone Encounter - Pau Dietz RN - 09/03/2020 3:11 PM TRIM CREW SUPERVISOR Matthew from [facility] in [facility] calling, they got the refill on bydureon and he is asking if it is ok to change the quantity of 10ml to 10.2ml for a 3 month supply? Advised OK to change to 10.2ml for a 3 month supply. FYI. CREW SUPERVISOR * Telephone Encounter - Robbie Osei MD - 09/02/2020 9:09 AM CST Prescription approved. Please call in CREW SUPERVISOR * Telephone Encounter - Sandra Childs RN - 09/01/2020 2:07 PM CST Medication failed the protocol, provider to review and approve the medication order if appropriate. Requested Prescriptions Pending Prescriptions Disp Refills Bydureon BCise 2 MG/0.85ML Auto-injector [Pharmacy Med Name: BYDUREON BCISE 2 MG AUTOINJECT] 8 Sig: INJECT 0.85 ML SUBCUTANEOUSLY EVERY 7 DAYS Endocrinology: Diabetes - Incretin Mimetics Passed - 09/01/2020 3:39 AM Passed - Valid encounter within last 12 months Past Office Visits Recent Outpatient Visits 3 months ago Type 2 diabetes mellitus without complication, without long-term current use of insulin (HCC) [facility] - Family Medicine - Robbie Pond MD 8 months ago Generalized abdominal pain [facility] Robbie Pond MD 9 months ago Essential hypertension [facility] Robbie Pond MD 1 year ago Leukocytosis, unspecified [facility], MANAGER PAPER 1 year ago Type 2 diabetes mellitus without complication, without long-term current use of insulin (HCC) [facility] Robbie Pond MD Upcoming Appointments Future Appointments In 1 week Lab, [facility], [facility] In 2 weeks [facility] FLITCH HANGER - Recent and Past Visits Recent Visits Date Type Provider Dept 05/14/20 Office Visit [facility] Office Visit Robbie Osei MD [facility] Shay 11/07/19 Office Visit Robbie Osei MD [facility] 05/30/19 Office Visit Janell Poon APN, [place] [facility] Showing recent visits within past 460 days with a meds authorizing provider and meeting all other requirements Future Appointments Date Type Provider Dept 09/17/20 Appointment Robbie Osei MD [facility] Showing future appointments within next 90 days with a meds authorizing provider and meeting all other requirements Passed - Last BP in normal range BP Readings from Last 1 Encounters: 05/14/20 128/82 CREW SUPERVISOR documented in this encounter Plan of Treatment Upcoming Encounters Date Type Department Care Team (Late st Contact Info) Description 03/27/2025 9:00 AM CDT [facility] [place] [address] Robbie Osei MD #[address] [address] documented as of this encounter Visit Diagnoses Not on filedocumented in this encounter Additional Health Concerns Infection Onset Date Last Indicated Resolved Time COVID - 19 10/31/2021 11/05/2021 11/07/2021 9:52 AM TRIM CREW SUPERVISOR COVID - 19 Confirmed 11/05/2021 11/05/2021 022 12:16 AM TRIM CREW SUPERVISOR COVID - 19 05/13/2022 05/13/2022 05/23/2022 12:1 6 AM CDT Assessment Noted Time PHQ-9 Depression Total Score: 0 11/07/19 20 10:29 AM TRIM CREW SUPERVISOR documented as of this encounter Care Teams Wood Carver Hand Relationship Specialty Start Date End Date Robbie Osei MD #[address] [facility] [address] [place] [address] PCP - General Family Medicine 09/05/15 Hugo Barnhart MD #[address] [facility] [address] [place] [address] Consulting Physician Obstetrics & Gynecology 09/07/17 Frank Hooper MD #[address] [facility] [address] [place] [address] Consulting Physician Colon and Rectal Surgery 11/03/23 documented as of this encounter
--- OUTSIDE RECORDS SUMMARY | 2025-03-21 06:04 | XMS_ITS | Encounter Summary ---
Author Organization [facility] Address [address] [place] [address] Care Team Providers Care Wire Stripper Name Role Phone Robbie Osei MD Primary Care Provider [phone] Encounter Details Date Type Department Care Team (Latest Contact Info) Description 03/07/2025 Results Follow-Up [facility] Diabetes and Endocrinology [address] [place] [phone] Delisa Navarro, SANDRA [address] [facility] [address] [address] Lipid panel, Comprehensive metabolic panel, Albumin Creatinine Ratio, Urine Social History Tobacco Use Types Packs/Day Years [...] on file Legal Sex Female 2:27 AM BARREL STRAIGHTENER Gender Identity Not on file Sexual Orientation Not on file documented as of this encounter Miscellaneous Notes * Result Encounter Note - Delisa Navarro NP - 03/07/2025 3:16 PM CDT Manjit Zepeda, Your labs are all good. No changes at this time. Please call or send a [employer] message if any questions. Thank you, Uziel Diaz documented in this encounter Plan of Treatment Not on file documented as of this encounter Visit Diagnoses Not on filedocumented in this encounter Care Teams Wire Stripper Relationship Specialty Start Date End Date Robbie Osei MD [address] [place] [id number] PCP - General Family Medicine 05/31/19 documented as of this encounter
--- OUTSIDE RECORDS SUMMARY | 2025-03-21 06:04 | XMS_ITS | Clinical Summary ---
Author Organization [facility] Address [address] [place] [address] Phone Care Team Providers Care Manager Behavior Name Role Phone Robbie Osei MD Primary Care Provider Hugo Barnhart MD Unavailable [phone] Frank Hooper MD Unavailable Allergies Active Allergy Reactions Criticality Noted Date Comments Azithromycin Unknown Erythromycin Unknown Penicillins Unknown Medications Multiple Vitamin (MULTIVITAMINS PO) Take by mouth every morning. Active Blood Glucose Monitoring Suppl Device Diagnosis: Diabetes type 2, without complication DX E11.9 Blood testing frequency: once a day 1 Each 09/17/20 20 Active Lancets Misc Use as directed 50 Lancet 6 09/17/20 20 Active Glucose Blood (ONE TOUCH ULTRA TEST) Strip Test once daily E11.9 100 Strip 09/17/20 20 Active fexofenadine-p seudoephedrine (ERIC-D 24) 180-240 MG TABLET SR 24 HRIndications: Allergic rhinitis due to pollen, unspecified seasonality Take 1 Tablet by mouth daily. 90 Tablet 3 11/18/19 22 Active Ozempic, 0.25 or 0.5 MG/DOSE, 2 MG/1.5ML Solution Pen-injector 5 mg once a week. Thursday12/19/19 23 Active glipiZIDE (GLUCOTROL) 5 MG Tablet Take 2 Tablets by mouth in the morning and at bedtime. 90 Tablet 3 01/23/20 Active metFORMIN (GLUCOPHAGE) 500 MG Tablet TAKE 1 TABLET BY MOUTH TWICE DAILY WITH MEALS 180 Tablet 05/11/20 Active Additional Information Patient taking differently: 2 TABS in morning, 1 TAB evening, Reported on 11/12/2023 fluticasone (FLONASE) 50 MCG/ACT SuspensionIndi cations:Cough in adult,Bronchit is USE 2 SPRAY(S) IN EACH NOSTRIL ONCE DAILY DIRECTED 16 g 08/14/20 Active Semaglutide (OZEMPIC, 0.25 OR 0.5 MG/DOSE, SC) by Subcutaneous route. Active atorvastatin (LIPITOR) 20 MG Tablet Take 1 tablet by mouth once daily 90 Tablet 03/09/20 Active atorvastatin (LIPITOR) 20 MG Tablet Take 1 tablet by mouth once daily 90 Tablet 12/11/19 25 025 Discontinued Active Problems Problem Noted Date Diagnosed Date HTN (hypertension) 09/06/2018 Screening for breast cancer 09/06/2018 Pure hypercholesterolemia 05/10/2018 Tobacco abuse 11/24/2016 Type 2 diabetes mellitus without complication Hyperglycemia 04/22/2016 Allergic rhinitis Encounters Date Type Department Care Team Description 03/09/2025 Refill [facility] [address] [place] [id number] Robbie Osei MD Medication Refill from Last 3 Months Immunizations Immunization Administration Dates Next Due Covid-19, Mrna, Lnp-s, Bival ent, Moderna, 50 Mcg or 25 mcg dose 08/15/2022 Covid-19, Mrna, Lnp-s, PF, 1 00 mcg/0.5 mL Dose (Moderna) 01/07/2021,12/06/2020 Influenza Vaccine greater than 3 yrs 10/19/2013 Influenza Vaccine, Quadrivalent, PF 07/21,08/11/2022,07/16/2021,08/13,11/07/2019,09/06/2018,07/28/2016 Influenza, Seasonal, Injecta ble, Undefined 10/19/2013 Influenza, recombinant, trivalent, PF 10/10/2024 PUR FLU 3+ YRS PRES FREE QUAD IM 07/28/2016 Pneumococcal Vaccine Adult - 23 Valent 9 Pneumococcal conjugate PCV20 , polysaccharide [id number] conjugate, adjuvant, PF 01/22/2023 TDAP Vaccine 03/21/2024 Zoster Vaccine Recombinant 08/17/2023 Family History Medical History Relation Name Comments Anxiety disorder Daughter 1 Tammie No Known Problems Daughter 2 Praveena Cancer Father Diabetes Half-Brother 1 Ed Other-comment Half-Brother 2 Javan Murdered No Known Problems Half-Sister 1 Zakia No Known Problems Half-Sister 2 Rosey No Known Problems Half-Sister 3 Diana No Known Problems Half-Sister 4 Breanne Other-comment Half-Sister 5 Kaylie Chron No Known Problems Half-Sister 6 Holly Heart Disease Maternal Grandfather Cancer Maternal Grandmother Lung Cancer Maternal Grandmother Cancer Mother lung Emphysema Mother Lung Cancer Mother No Known Problems Paternal Grandfather No Known Problems Paternal Grandmother No Known Problems Sister 1 Jessika Alcohol Abuse Sister 2 Sonia Relation Name Status Comments Daughter 1 Tammie Alive Daughter 2 Praveena Alive Father Half-Brother 1 Ed Alive Half-Brother 2 Javan Half-Sister 1 Zakia Alive Half-Sister 2 Rsoey Alive Half-Sister 3 Diana Alive Half-Sister 4 Breanne Alive Half-Sister 5 Kaylie Half-Sister 6 Holly Alive Maternal Grandfather Maternal Grandmother Mother Paternal Grandfather Paternal Grandmother Sister 1 Jessika Alive Sister 2 Soina Alive Social History Tobacco Use Types Packs/Day Years Used Date Smoking Tobacco: Every Day Cigarettes 0.8 39.4 Started: 1985 Smokeless Tobacco: Never Alcohol Use Standard Drinks/Week Comments Not Currently 0 (1 standard drink = 0.6 oz pur e alcohol) rarely [facility] Utilities Answer Date Recorded In the past 12 months has [employer], gas, oil, or water company threatened to shut off services in your home? No 03/21/2024 Social Connection and Isolation Panel [NHANES] A nswer Date Recorded In a typical week, how many times do you talk on the phone with family, friends, or neighbors? Three times a week 03/21/20 How often do you get togethe r with friends or relatives? Patient declined 03/21/2024 How often do you attend [facility] or scientology services? Never 03/21/2024 Do you belong to any clubs o r organizations such as quaker groups, unions, fraternal or athletic groups, or school groups? No 03/21/2024 How often do you attend meet ings of the clubs or organizations you belong to? Never 03/21/2024 Are you , , di vorced, , never , or living with a partner? Living with partner 03/21/2024 AUDIT-C Answer Date Recorded Q1: How often do you have a drink containing alc ohol? Monthly or less 03/21/2024 Q2: How many drinks containi ng alcohol do you have on a typical day when you are drinking? 1 or 2 03/21/2024 Q3: How often do you have si x or more drinks on one occasion? Never 03/21/2024 Overall Financial Resource Strain (CARDIA) Answe r Date Recorded How hard is it for you to pa y for the very basics like food, housing, medical care, and heating? Not very hard 03/21/2024 PHQ-2 Answer Date Recorded Total Score - Questions 1-9 0 10/21 [facility] - Occupational Stress Questionnaire Answer Date Recorded Do you feel stress - tense, restless, nervous, or anxious, or unable to sleep at night because your mind is troubled all the time - these days? Not at all 03/21/2024 Exercise Vital Sign Answer Date Recorde d On average, how many days pe r week do you engage in moderate to strenuous exercise (like a brisk walk)? Patient declined On average, how many minutes do you engage in exercise at this level? Patient declined 03/21/2024 Hunger Vital Sign Answer Date Recorded Within the past 12 months, y ou worried that your food would run out before you got the money to buy more. Never true 03/21/20 24 Within the past 12 months, t he food you bought just didn't last and you didn't have money to get more. Never true 03/21/2024 PRAPARE - Transportation Answer Date Re corded In the past 12 months, has l ack of transportation kept you from medical appointments or from getting medications? No 12/2023 In the past 12 months, has l ack of transportation kept you from meetings, work, or from getting things needed for daily living? No 03/21/2024 Housing Stability Vital Sign Answer Lambert e Recorded In the last 12 months, was t here a time when you were not able to pay the mortgage or rent on time? No 03/21/2024 In the last 12 months, how many places have you lived? 1 03/21/2024 In the last 12 months, was t here a time when you did not have a steady place to sleep or slept in a correction (including now)? No 03/21/2024 Sexually Active Control Partners Comments Not Currently Male Comments No Sex and Gender Information Value Date Recorded Sex Assigned at Not on file Legal Sex Female 7:35 PM CDT Gender Identity Not on file Sexual Orientation Not on file Last Filed Vital Signs Vital Sign Reading Time Taken Comments Blood Pressure 102/64 03/21/2024 8:00 AM CDT Pulse 76 03/21/2024 8:00 AM CDT Temperature 36.4 C (97.6 F) 03/21/2024 8:00 AM CDT Respiratory Rate 14 12/21/2023 10:34 AM COMM[facility]ITY C[facility] DIRECTOR Oxygen Saturation 99% 03/21/2024 8:00 AM CDT Inhaled Oxygen Concentration - - Weight 56.2 kg (124 lb) 03/21/2024 8:00 AM CDT Height 167.6 cm (5' 6) 03/21/2024 8:00 AM CDT Body Mass Index 20.01 03/21/2024 8:00 AM CDT Plan of Treatment Upcoming Encounters Date Type Department Care Team (Late st Contact Info) Description 03/27/2025 9:00 AM CDT Office Visit [facility] [address] [place] [phone] Robbie Osei MD [address] [address] Health Maintenance Due Date Last Done Comments Hepatitis C Virus (HCV) Screening 1969 Hepatitis B Immunization (1 of 3 - 19+ 3-dose series) 1988 HPV/Cotest 1999 Cologuard 2019 Diabetes: Eye Exam 12/05/2021 12/05/2020 Zoster Immunization (2 of 2) 10/12/2023 08/17/2023 Diabetes: Foot Exam 01/23/2024 01/22/2023 Immunochemical Fecal Occult Blood 04/20/2024 04/20/2023 Mammogram 05/25/2024 05/25/2023, 12/27/2018 Diabetes: Hemoglobin A1c 08/30/2025 025, 12/12/2024, 09/12/2024, Additional history exists Diabetes: Nephropathy Screening 12/12/2025 12/12/2024, 09/12/2024, 06/06/2024, Additional history exists Cervical Cancer Screening (CCS) 06/27/2027 Pap Smear 06/27/2027 06/27/2024, 07/08/2021 Colonoscopy 12/20/2028 12/21/2023, 01/2024, 12/19/2019, Additional history exists Colorectal Cancer Screening 12/20/2028 Td Immunization Every 10 Years (Adults With 1 Tdap) 03/21/2034 03/21/2024 Respiratory Syncytial Virus (RSV) Immunization (Adult) (1 - 1-dose 75+ series) 2044 12/21/2023, 11/2019, 04/27/2013 Pneumococcal Immunization (50+ years) Completed 01/22/2023, 06/19/2009 Pneumococcal Immunization Combined Discontinued 01/22/2023, 06/19/2009 TdaP Immunization Discontinued 03/21/2024 Influenza Immunization Completed , 08/17/2023, 08/11/2022, Additional history exists SARS-COV-2 Immunization Completed 10/10/20 24, 08/17/2023, 08/15/2022, Additional history exists Human Papillomavirus (HPV) Immunization Aged Out No longer eligible based on patient's age to complete this topic Meningococcal Immunization (ACWY) Aged Out No longer eligible based on patient's age to complete this topic Rotavirus Immunization Aged Out No lo nger eligible based on patient's age to complete this topic Procedures Procedure Name Priority Date/Time Associated Diagnosis Comments CMP (COMPREHENSIVE METABOLIC PANEL) 12/12/2024 12:00 AM COMM[facility]ITY C[facility] DIRECTOR HEMOGLOBIN, A1C 12/12/2024 12:00 AM COMMUNITY CENTER DIRECTOR PATHOLOGY CYTOLOGY RIPENING ROOM ATTENDANT 06/27/2024 12:00 AM CDT BENJA SCREENING BILATERAL DIGITAL W CAD W TIM Routine 05/25/2023 11:09 AM CDT Visit for screening mammogram [facility] COLONOSCOPY Routine 04/27/2013 from Last 3 Months or Most Recently Relevant to Health Maintenance Results * HEMOGLOBIN, A1C (12/12/2024 12:00 AM COMMUNITY CENTER DIRECTOR) HGB-A1C 8.4 SCAN 12/12/2024 us Provider Scan CHEMISTRY ORDERABLES Final Resul t SCAN * CMP (COMPREHENSIVE METABOLIC PANEL) (12/12/2024 12:00 AM COMMUNITY CENTER DIRECTOR) 12/12/2024 us Provider Scan CHEMISTRY ORDERABLES Final Resul t SCAN * PATHOLOGY CYTOLOGY RIPENING ROOM ATTENDANT (06/27/2024 12:00 AM CDT) 06/27/2024 us Provider Scan PATHOLOGY/CYTOLOGY ORDERABLES Fi nal Result SCAN * BENJA SCREENING BILATERAL DIGITAL W CAD W TIM (05/25/2023 11:09 AM CDT) Anatomical Region Laterality Modality breast Bilateral Mammography 05/25/2023 11:0 7 AM CDT Narrative 05/25/2023 3:01 PM CDT - BENJA SCREENING BILATERAL DIGITAL W CAD W TIM BILATERAL DIGITAL SCREENING MAMMOGRAM 3D/2D WITH CAD WITH MEDIOLATERAL OBLIQUE CRANIOCAUDAL: 05/25/2023 The study was acquired using digital technology and interpreted from soft copy. Current study was also evaluated with ICAD version 7.2. 2D digital mammographic views, as well as 3D digital tomosynthesis were performed in the CC and MLO projections. CLINICAL: Routine screening. Patient has no complaints. No personal history of cancer. No family history of breast cancer. COMPARISONS: Comparison is made to exam dated: 12/27/2018 [facility]. BREAST TISSUE:The tissue of both breasts is heterogeneously dense. This may lower the sensitivity of mammography. FINDINGS: There are benign calcifications in both breasts. No significant masses, calcifications, or other findings are seen in either breast. There has been no significant interval change. IMPRESSION: BI-RAD 2 BENIGN There is no mammographic evidence of malignancy. A 1 year screening mammogram is recommended. A letter will be sent to the patient with these results. The patient will be entered into a reminder system with a target due date of 1 year for her next screening exam. Electronically signed by: Miquel farah/brice:05/25/2023 14:29:00 Neuro Urologist(s): RT Robert(R)(M), [facility] letter sent: Normal Exam Reading location: [facility] BI-RADS: 2 Benign Procedure Note Miquel Jarrett MD - 05/25/2023 - BENJA SCREENING BILATERAL DIGITAL W CAD W TIM BILATERAL DIGITAL SCREENING MAMMOGRAM 3D/2D WITH CAD WITH MEDIOLATERAL OBLIQUE CRANIOCAUDAL: 05/25/2023 The study was acquired using digital technology and interpreted from soft copy. Current study was also evaluated with ICAD version 7.2. 2D digital mammographic views, as well as 3D digital tomosynthesis were performed in the CC and MLO projections. CLINICAL: Routine screening. Patient has no complaints. No personal history of cancer. No family history of breast cancer. COMPARISONS: Comparison is made to exam dated: 12/27/2018 [facility]. BREAST TISSUE:The tissue of both breasts is heterogeneously dense. This may lower the sensitivity of mammography. FINDINGS: There are benign calcifications in both breasts. No significant masses, calcifications, or other findings are seen in either breast. There has been no significant interval change. IMPRESSION: BI-RAD 2 BENIGN There is no mammographic evidence of malignancy. A 1 year screening mammogram is recommended. A letter will be sent to the patient with these results. The patient will be entered into a reminder system with a target due date of 1 year for her next screening exam. Electronically signed by: Miquel farah/brice:05/25/2023 14:29:00 Neuro Urologist(s): RT Robert(R)(M), [facility] letter sent: Normal Exam Reading location: [facility] BI-RADS: 2 Benign Robbie Osei MD IMG MAMMO ORDERABLES Final Re sult * [facility] COLONOSCOPY (04/27/2013) Robbie Osei MD PROCEDURE/MINOR SURGICAL ORDE RABLES Final Result from Last 3 Months or Most Recently Relevant to Health [place] [address] [facility] Care Teams Manager Behavior Relationship Specialty Start Date End Date Robbie Osei MD [address] [address] PCP - General Family Medicine 09/05/15 Hugo Barnhart MD #[address] [address] Consulting Physician Obstetrics & Gynecology 09/07/17 Frank Hooper MD [address] [address] Consulting Physician Colon and Rectal Surgery 11/03/23
--- NOTE | 2025-03-21 06:15 | PC.NURSE ---
Patient stated she is unable to provide urine sample at this time. Pt does not want straight cath and states she will try after receiving fluids.
[2025-03-21 06:21] LABS: Strep Group A RT-PCR NOT DETECTED (Negative)
[2025-03-21] MEDS: IPRATROPIUM 0.5 MG/ALBUTEROL SULFATE 2.5 MG AMPUL.NEB 3 ML INHALATION (06:23)
[2025-03-21 06:32] LABS: Influenza A QL RT-PCR Negative (Negative); Influenza B QL RT-PCR Negative (Negative); RSV RNA, RT-PCR Negative (Negative); SARS-CoV-2 RNA PCR Negative (Negative)
[2025-03-21 06:53] LABS: Alanine Aminotransferase 27 U/L (6-35); Albumin Level 4.3 g/dL (3.5-5.1); Alkaline Phosphatase 89 U/L (38-126); Anion Gap 8 mmol/L (4-12); Aspartate Amino Transferase 30 U/L (14-36); Bilirubin,Total 0.7 mg/dL (0.2-1.3); Blood Urea Nitrogen 13 mg/dL (7-17); Calcium 9.8 mg/dL (8.4-10.2); Carbon Dioxide 30 mmol/L (22-30); Chloride 99 mmol/L (98-107); Estimated CRCL calculation 79 ml/min; Estimated Glomerular Filt Rate > 60; Glucose 190 mg/dL (65-110); Lipase 284 U/L (23-300); Potassium 3.9 mmol/L (3.4-5.0); Sodium 137 mmol/L (137-145)
[2025-03-21 07:17] LABS: Add Urine Microscopic? NO; Appearance Urine Clear (Clear); Bilirubin Urine Negative (Negative); Blood Urine Negative (Negative); Color Urine Yellow (Yellow); Glucose Urine UA Negative (Negative); Ketones Urine 1+ mg/dL (Negative); Leukocyte Esterase Ur Negative LEU/UL (Negative); Nitrate Urine Negative (Negative); Protein Urine Negative (Negative); Specific Grav Ur 1.009 (1.001-1.035); Urobilinogen Urine 0.2 mg/dL (<2.0)
[2025-03-21 07:26] LABS: D Dimer < 0.27 ug/mL (<0.48)
[2025-03-21 07:27] LABS: BEDSIDEPREGUCG Negative (Negative)
[2025-03-21] MEDS: ALBUTEROL SULFATE NEB 2.5 MG/3 ML INH INHALATION (07:53)
[2025-03-21] MEDS: methylPREDNISolone SOD SUCC 125 MG VIAL IV PUSH (08:12)
[2025-03-21] MEDS: DOXYCYCLINE HYCLATE 100 MG TABLET PO (08:13)
[2025-03-21 08:15] LABS: Basophils Percent Auto 0.3 % (0.2-1.2); Eosinophils Absolute Auto 0.1 K/mm3 (0-0.3); Hematocrit 43.9 % (37.0-47.0); Hemoglobin 14.6 g/dL (12.0-15.0); Immature Granulocyte Absolute 0.03 K/mm3 (0.00-0.031); Immature Granulocyte Percent A 0.3 % (0-0.5); Lymphocytes Absolute Auto 1.49 K/mm3 (0.9-3.2); Mean Corpuscular HGB Conc 33.3 g/dl (32-36); Mean Corpuscular Volume 90.1 fl (80-100); Mean Platelet Volume 11.8 fl (7.4-10.4); Monocytes Absolute Auto 0.8 K/mm3 (0.1-0.6); Monocytes Percent Auto 7.3 % (2.6-8.5); Neutrophils Percent Auto 78.1 % (45.5-73.1); Platelet Count Result 206 k/mm3 (150-375); Red Blood Count 4.87 M/mm3 (4.2-5.4); Red Cell Distribution Width 12.6 % (11.5-14.5); White Blood Count 11.5 K/mm3 (4.5-10.0)
== END 2025-03-21 08:38 | disposition home or self-care (01) ==
PROVIDERS: Emergency Provider Student in an Organized Health Care Education/Training Program
DX: E11.65 Type 2 diabetes mellitus with hyperglycemia (principal); R11.0 Nausea; J44.9 Chronic obstructive pulmonary disease, unspecified; F17.210 Nicotine dependence, cigarettes, uncomplicated; Z20.822 Contact with and (suspected) exposure to COVID-19
CPT/HCPCS: 36415; 71046; 80053; 81003; 81025; 83690; 85025; 85380; 87637; 87651; 93005; 94640; 96361; 96374; 96375; 99284; A9270; J2405; J2919; J7030